=== PATIENT | female | born 1955 | race Caucasian/White ===

== ENCOUNTER 2017-07-09 09:47 | Day surgery (SDC) | payer MEDICAID, OTHER ==
[2017-07-09] MEDS ORDERED: MEPERIDINE HCL/PF 100 MG/ML AMP ONE (10:07)
[2017-07-09] MEDS ORDERED: SIMETHICONE 40 MG/0.6 ML ML ONE (10:07)
[2017-07-09] MEDS: MIDAZOLAM HCL 5 MG/5 ML VIAL ONE ×2 (11:22→11:30)
[2017-07-09 13:58] VITALS: BP_SYST 106
== END 2017-07-09 12:45 | disposition home or self-care (01) ==
LOC: SDS 09:47 → EDSEX 12:00 → SDS 12:45
PROVIDERS: ATTEND Internal Medicine Gastroenterology
DX: K63.5 Polyp of colon (principal); K64.8 Other hemorrhoids; K29.70 Gastritis, unspecified, without bleeding; E11.9 Type 2 diabetes mellitus without complications; E78.5 Hyperlipidemia, unspecified; I10 Essential (primary) hypertension; Z68.31 Body mass index [BMI] 31.0-31.9, adult; Z79.84 Long term (current) use of oral hypoglycemic drugs; Z79.899 Other long term (current) drug therapy
CPT/HCPCS: 36415; 43239; 45380; 82962; 87081; 88305; 88312; 88313; J2175; J2250

== ENCOUNTER 2022-02-03 06:00 | Day surgery (SDC) | payer MEDICAID ==
[~2022-02-03] VITALS: Ht 152.4 cm; Wt 83.9 kg
[2022-02-03] MEDS ORDERED: MEPERIDINE 100 MG INJ. 100 MG/ML VIAL ONE (07:13)
[2022-02-03] MEDS ORDERED: SIMETHICONE 40 MG/0.6 ML ML ONE (07:13)
[2022-02-03] MEDS ORDERED: MIDAZOLAM HCL 5 MG/5 ML VIAL ONE (07:14)
[2022-02-03 16:19] VITALS: BP_SYST 128
== END 2022-02-03 10:25 | disposition home or self-care (01) ==
LOC: SMU 06:00 → SDS 06:00
PROVIDERS: ATTEND Internal Medicine Gastroenterology
DX: D64.9 Anemia, unspecified (principal); K64.8 Other hemorrhoids; K25.4 Chronic or unspecified gastric ulcer with hemorrhage; K44.9 Diaphragmatic hernia without obstruction or gangrene; E11.9 Type 2 diabetes mellitus without complications; E78.5 Hyperlipidemia, unspecified; I10 Essential (primary) hypertension; K21.9 Gastro-esophageal reflux disease without esophagitis; Z79.899 Other long term (current) drug therapy; Z20.822 Contact with and (suspected) exposure to COVID-19
CPT/HCPCS: 36415 ×2; 43239; 45378; 87426; 87081; 82962; 88305; 88312; 88313; 99152; 99153; U0003; G0378; J2250; J2175